=== PATIENT | male | born 1995 | race Caucasian/White ===

== ENCOUNTER 2018-06-21 10:46 | Emergency (ER) | payer OTHER ==
[~2018-06-21] VITALS: Ht 172.7 cm; Wt 79.8 kg
[2018-06-21 11:07] VITALS: Ht 172.7 cm; Wt 79.8 kg
[2018-06-21 11:56] VITALS: BP 124/62
== END 2018-06-21 11:56 | disposition home or self-care (01) ==
LOC: ED 10:46
DX: M25.511 Pain in right shoulder (principal); J45.909 Unspecified asthma, uncomplicated; W19.XXXA Unspecified fall, initial encounter; Y93.89 Activity, other specified; Y92.89 Other specified places as the place of occurrence of the external cause; Y99.8 Other external cause status
CPT/HCPCS: J1885; Q0092

== ENCOUNTER 2019-08-25 07:34 | Emergency (ER) | payer OTHER ==
[~2019-08-25] VITALS: Ht 172.7 cm; Wt 82.1 kg
[2019-08-25 07:40] VITALS: Ht 172.7 cm; Wt 82.1 kg
[2019-08-25 09:15] VITALS: BP 127/85
== END 2019-08-25 11:18 | disposition home or self-care (01) ==
LOC: ED 07:34
DX: J45.901 Unspecified asthma with (acute) exacerbation (principal)
CPT/HCPCS: 94150; J2930; J7512; J7613; J7644

== ENCOUNTER 2020-05-28 15:26 | Emergency (ER) | payer OTHER ==
[~2020-05-28] VITALS: Ht 172.7 cm; Wt 84.8 kg
[2020-05-28 15:49] VITALS: BP 139/94; Ht 172.7 cm; Wt 84.8 kg
== END 2020-05-28 17:08 | disposition home or self-care (01) ==
LOC: ED 15:26
DX: S81.812A Laceration without foreign body, left lower leg, initial encounter (principal); J45.909 Unspecified asthma, uncomplicated; X58.XXXA Exposure to other specified factors, initial encounter; Y93.23 Activity, snow (alpine) (downhill) skiing, snowboarding, sledding, tobogganing and snow tubing; Y92.89 Other specified places as the place of occurrence of the external cause; Y99.8 Other external cause status
CPT/HCPCS: J2001

== ENCOUNTER 2020-06-11 18:05 | Emergency (ER) | payer OTHER ==
[~2020-06-11] VITALS: Ht 172.7 cm; Wt 84.8 kg
[2020-06-11 18:16] VITALS: BP 127/58; Ht 172.7 cm; Wt 84.8 kg
== END 2020-06-11 18:50 | disposition home or self-care (01) ==
LOC: ED 18:05
DX: S81.812D Laceration without foreign body, left lower leg, subsequent encounter (principal); J45.909 Unspecified asthma, uncomplicated; Z98.890 Other specified postprocedural states; X58.XXXD Exposure to other specified factors, subsequent encounter